=== PATIENT | male | born 1955 | race African-American/Black ===

== ENCOUNTER 2020-10-01 06:10 | Day surgery (SDC) | payer OTHER ==
[2020-09-26 15:45] VITALS: BMI 23.6
[2020-10-01 06:42] VITALS: BP 188/106; PULSE 60; TEMP 97.4
== END 2020-10-01 10:35 | disposition home or self-care (01) ==
LOC: FM/S 06:10 → FASUSAT 06:10 → UNDOADMIN 06:10 → EDSTATUS 08:00 → FASUSAT 08:36 → UNDODISIN 10:35
PROVIDERS: ATTEND Orthopaedic Surgery Orthopaedic Surgery of the Spine
PROC: 0SRC0JZ Replacement of Right Knee Joint with Synthetic Substitute, Open Approach (ICD-10-PCS; principal; 2020-10-01)
DX: M17.12 Unilateral primary osteoarthritis, left knee (principal); Z53.09 Procedure and treatment not carried out because of other contraindication